=== PATIENT | female | born 1935 | race Caucasian/White ===

== ENCOUNTER 2018-09-03 13:29 | Day surgery (SDC) | payer MEDICARE, BC, OTHER ==
[~2018-09-03] VITALS: Ht 158.8 cm; Wt 54.5 kg
[~2018-09-03 13:29] MED LIST changes: -AMLO10TA5 PO; -ASPI81TA26 PO; -CALC500T44 PO; -CARV6.25 PO; -CO Q10CA PO; -COQ1100C5 PO; -GABA-843 PO; -GASTROGRAFIN SOLUTION 30ML (Q9963) As Ordered ONE; -GNP1000T11 PO; -ISOVUE-370 76% 100ML VIAL (Q9967) As Ordered ONE; -RAMI1CAP26 PO; -ROSU5TAB4 PO; -VITAD1000T PO
[2018-09-03] MEDS ORDERED: RAMI1CAP26 PO (13:40)
[2018-09-03] MEDS ORDERED: CARV6.25 PO (13:40)
[2018-09-03] MEDS ORDERED: ROSU5TAB5 PO (13:40)
[2018-09-03] MEDS ORDERED: VITAD1000T PO (13:40)
[2018-09-03] MEDS ORDERED: GABA-843 PO (13:40)
[2018-09-03] MEDS ORDERED: CO Q10CA PO (13:40)
[2018-09-03] MEDS ORDERED: NS 1,000 ML IV SCH (14:12)
[2018-09-03 14:28] LABS: BASO % 0.2 % (0.0-1.0); EOS % 0.2 % (0.0-3.0); HEMATOCRIT 39.2 % (36.0-47.0); LYMPH # 1.3 10^3/uL (1.5-4.5); LYMPH % 13.6 % (24.0-44.0); MEAN CORPUSCULAR HEMOGLOBIN 33.4 pg (27.0-33.0); MEAN CORPUSCULAR HGB CONC 33.2 g/dl (32.0-36.5); MEAN CORPUSCULAR VOLUME 100.8 fl (80.0-96.0); MONO # 0.8 10^3/uL (0.0-0.8); MONO % 8.2 % (0.0-5.0); NEUTROPHILS # 7.4 10^3/uL (1.8-7.7); NEUTROPHILS % 77.2 % (36.0-66.0); PLATELET COUNT, AUTOMATED 181 10^3/uL (150-450); RED BLOOD COUNT 3.89 10^6/uL (4.00-5.40); WHITE BLOOD COUNT 9.6 10^3/uL (4.0-10.0)
[2018-09-03] MEDS ORDERED: PIPERACILLIN/TAZOBACTAM SOD 4.5 GM in D5W MINI-BAG PLUS 50 ML IV ONE (14:30)
[2018-09-03 14:38] LABS: INR 1.15; PROTHROMBIN TIME 14.4 SECONDS (11.8-14.0)
[2018-09-03 14:39] LABS: PARTIAL THROMBOPLASTIN TIME 34.4 SECONDS (25.0-38.4)
[2018-09-03] MEDS ORDERED: MORPHINE 4 MG/ML 1ML VIAL/SYRINGE (J2270) IV ONE (15:00)
[2018-09-03 15:03] LABS: ALBUMIN 3.3 GM/DL (3.2-5.2); ALT/SGPT 22 U/L (12-78); BILIRUBIN,DIRECT 0.2 MG/DL (0.0-0.2); BILIRUBIN,TOTAL 0.6 MG/DL (0.2-1.0); BLOOD UREA NITROGEN 15 MG/DL (7-18); CALCIUM LEVEL 8.5 MG/DL (8.8-10.2); CARBON DIOXIDE LEVEL 28 MEQ/L (21-32); CHLORIDE LEVEL 102 MEQ/L (98-107); CREATININE FOR GFR 0.72 MG/DL (0.55-1.30); GLOMERULAR FILTRATION RATE > 60.0 (>32); GLUCOSE, FASTING 94 MG/DL (70-100); LIPASE 75 U/L (73-393); POTASSIUM SERUM 3.3 MEQ/L (3.5-5.1); SODIUM LEVEL 137 MEQ/L (136-145); TOTAL PROTEIN 6.5 GM/DL (6.4-8.2)
[2018-09-03] MEDS ORDERED: AMLO10TA5 PO (15:04)
[2018-09-03] MEDS ORDERED: ASPI81TA26 PO (15:04)
[2018-09-03] MEDS ORDERED: COQ1100C5 PO (15:04)
[2018-09-03] MEDS ORDERED: GNP1000T11 PO (15:05)
[2018-09-03] MEDS ORDERED: CALC500T44 PO (15:05)
[2018-09-03] MEDS ORDERED: BUPIVACAINE/EPIN 0.25% 30 ML VIAL As Ordered ONE (15:24)
[2018-09-03] MEDS ORDERED: KCL 40MEQ in NS 1000ML 1,000 ML IV SCH (16:00)
[2018-09-03] MEDS ORDERED: POTASSIUM CHLORIDE 10 MEQ SR TABLET PO ONE (16:00)
[2018-09-03] MEDS ORDERED: MORPHINE 4 MG/ML 1ML VIAL/SYRINGE (J2270) IV PRN ×2 (16:30→19:00)
--- NOTE | 2018-09-03 16:44 | CR.PDOC ---
General Date of Consultation: Sep 03, 2018 Consultation REASON FOR CONSULTATION/CHIEF COMPLAINT: Who presented to the emergency room with complaints of abdominal pain HISTORY OF PRESENT ILLNESS: Patient is an 82-year-old female with a PMHx of CAD s/p CABG (2008), HTN, DLP and Sciatica who presented to the ER with complaints of abdominal pain that has been going on for several days. Patient reports she began to experience lower abdominal pain around her umbilicus. Patient describes the pain as a distention/stretching-type feeling, associated with bloating and constipation. Patient reported an 8/10 pain on arrival. Patient reported some mild alleviation with Pepto-Bismol and carlie homero. She noted aggravation with movement. Patient does report some chills at home but denies any fever, episodes. Denies any associated nausea or vomiting. Denies any urinary discomfort. Patients last meal was this morning where she had toast. And patients last bowel movement was this morning. Patient denies any chest pain, shortness breath, palpitations. Patient follows with a account group supervisor in [place]. . She has received a stress test 2 years ago that has been reported negative and did not require any further cardiac catheterization. Patient does report that other than knee pain and back pain. Patient can ambulate up 2 flights of stairs without difficulty. ALLERGIES: Please see below. HOME MEDICATIONS: Please see below. PAST MEDICAL HISTORY: CAD s/p CABG (2008), HTN, DLP and Sciatica PAST SURGICAL HISTORY: Left total knee arthroplasty in September 2017 Coronary artery bypass grafting in 2008 FAMILY HISTORY: - Family history reviewed and noncontributory to current hospitalization SOCIAL HISTORY: - Denies the use of tobacco or illicit drugs; patient does report social alcohol use and drinks wine - Denies recent travel or sick contacts - Lives with , [facility] - Occupation; retired teacher REVIEW OF SYSTEMS: 10 point review of systems complete, all negative otherwise stated in HPI PHYSICAL EXAMINATION: - Vitals: BP 142/75, HR 85, RR 16, Sat 98%RA, Temp 98.2F - General: Lying in bed, No acute distress, Speaking in full sentences, AAOx3 - HEENT: NC, AT, PERRLA - CVS: RRR, +S1S2 - Lungs: Fair air entry bilaterally, No wheezing / rales / rhonchi - Abdomen: Soft, Non-distended, Tenderness noted around umbilicus and RLQ, rebound tenderness noted on bilateral lower quadrants, no rigidity - Extremities: No lower extremity edema, No calf tenderness - Neuro: No focal motor or sensory deficit - Skin: No visible rashes LABORATORY DATA: Please see below. ASSESSMENT/PLAN: Abdominal pain - likely 2/2 acute appendicitis - Presented to the ER with couplets of abdominal pain - Remains hemodynamically stable and afebrile - No leukocytosis - CT abdomen / pelvis 09/03: Findings compatible with acute appendicitis with suspected contained perforation as well as small amount of free fluid extending into the pelvis and surrounding inflammatory changes to the adjacent loops of small bowel. Findings were discussed with ordering clinician. - Will c/w IV fluid hydration and intra-abdominal coverage of infection with Zosyn (Day #1) - Will start Morphine for pain control - Will be managed by primary surgical team Medical optimization - Patient is medically optimized for her urgent surgical procedure CAD s/p CABG (2008) - Will hold ASA pending surgical input - c/w Rampiril / Carvedilol with hiolding parameters HTN - Will c/w Ramipril, Carvedilol, Amlodipine with holding parameters starting on 09/03 DLP - c/w Rosuvastatin Sciatica / Neuropathy - c/w Gabapentin Vitamin D deficiency - c/w Vitamin D supplementation DVT prophylaxis - Will start AALIYAH / Sequentials - Will hold Heparin / Lovenox based on surgical input Vital Signs/I&O Vital Signs Date Time Temp Pulse Resp B/P (MAP) Pulse Ox O2 Delivery O2 Flow Rate FiO2 09/03/18 14:56 18 09/03/18 14:25 09/03/18 13:30 98.2 85 98 Room Air Laboratory Data Labs 24H Laboratory Tests 2 09/03/18 14:15: Immature Granulocyte % (Auto) 0.6, White Blood Count 9.6, Red Blood Count 3.89L, Hemoglobin 13.0, Hematocrit 39.2, Mean Corpuscular Volume 100.8H, Mean Corpuscular Hemoglobin 33.4H, Mean Corpuscular Hemoglobin Concent 33.2, Red Cell Distribution Width 12.9, Platelet Count 181, Neutrophils (%) (Auto) 77.2H, Lymphocytes (%) (Auto) 13.6L, Monocytes (%) (Auto) 8.2H, Eosinophils (%) (Auto) 0.2, Basophils (%) (Auto) 0.2, Neutrophils # (Auto) 7.4, Lymphocytes # (Auto) 1.3L, Monocytes # (Auto) 0.8, Eosinophils # (Auto) 0.0, Basophils # (Auto) 0.0, Nucleated Red Blood Cells % (auto) 0.0, Prothrombin Time 14.4H, Prothromb Time International Ratio 1.15, Activated Partial Thromboplast Time 34.4, Anion Gap 7L, Glomerular Filtration Rate > 60.0, Calcium Level 8.5L, Aspartate Amino Transf (AST/SGOT) 17, Alanine Aminotransferase (ALT/SGPT) 22, Alkaline Phosphatase 67, Total Bilirubin 0.6, Direct Bilirubin 0.2, Total Protein 6.5, Albumin 3.3, Albumin/Globulin Ratio 1.03, Lipase 75 CBC/BMP Laboratory Tests 09/03/18 14:15 Red Blood Count 3.89 L, Mean Corpuscular Volume 100.8 H, Mean Corpuscular Hemoglobin 33.4 H, Mean Corpuscular Hemoglobin Concent 33.2, Red Cell Distribution Width 12.9, Neutrophils (%) (Auto) 77.2 H, Lymphocytes (%) (Auto) 13.6 L, Monocytes (%) (Auto) 8.2 H, Eosinophils (%) (Auto) 0.2, Basophils (%) (Auto) 0.2, Neutrophils # (Auto) 7.4, Lymphocytes # (Auto) 1.3 L, Monocytes # (Auto) 0.8, Eosinophils # (Auto) 0.0, Basophils # (Auto) 0.0 Allergies Coded Allergies: tramadol (Verified Adverse Reaction, Mild, n/v, 09/03/18) Home Medications Scheduled Amlodipine Besylate (Amlodipine Besylate) 10 Mg Tablet, 10 MG PO DAILY, (Reported) Aspirin (Aspirin EC) 81 Mg Tablet.dr, 81 MG PO 5XW, (Reported) MON, TUES, WED, FRI, SAT Calcium Carbonate/Vitamin D3 (Calcium 500-Vit D3 200 Tablet) 1 Each Tablet, 1 TAB PO DAILY, (Reported) Carvedilol (Carvedilol) 6.25 Mg Tablet, 6.25 MG PO BID, (Reported) Gabapentin (Gabapentin) 300 Mg Capsule, 600 MG PO TID, (Reported) Glucosamine Sulfate Dipot Chlr (Glucosamine) 1,000 Mg Tablet, 1,000 MG PO DAILY, (Reported) Ramipril (Ramipril) 10 Mg Capsule, 10 MG PO BID, (Reported) Rosuvastatin Calcium (Rosuvastatin Calcium) 5 Mg Tablet, 5 MG PO QHS, (Reported) Ubidecarenone (Co Q-10) 100 Mg Capsule, 100 MG PO DAILY, (Reported) Vitamin D (Vitamin D3) 1,000 Unit Tablet, 1,000 UNIT PO DAILY, (Reported) RADHA TOLBERT MD Sep 03, 2018 16:44
[2018-09-03] MEDS ORDERED: PILL CUTTER 1 EACH XX PRN (17:00)
[2018-09-03] MEDS ORDERED: fentaNYL 100 MCG/2 ML INJECTION (J3010) As Ordered ONE (17:34)
[2018-09-03] MEDS ORDERED: LIDOCAINE 2% INJ 100 MG/5 ML SDV (FOR ANES.) As Ordered ONE (17:34)
[2018-09-03] MEDS ORDERED: ROCURONIUM BROMIDE 50 MG/5 ML VIAL As Ordered ONE (17:34)
[2018-09-03] MEDS ORDERED: PROPOFOL 200 MG/20 ML VIAL As Ordered ONE (17:34)
[2018-09-03] MEDS ORDERED: dexameTHASONE 4 MG/ML 1ML VIAL (J1100) As Ordered ONE ×2 (17:34→19:02)
[2018-09-03] MEDS ORDERED: ONDANSETRON 4MG/2ML VIAL (J2405) As Ordered ONE ×2 (17:51→18:26)
--- NOTE | 2018-09-03 18:07 | HPE ---
DATE OF ADMISSION: 09/03/2018 CHIEF COMPLAINT: Abdominal pain. HISTORY OF PRESENT ILLNESS: Patient is an 82-year-old female who had an outpatient CT done for abdominal pain, which revealed a contained perforation of the appendix. Therefore, she was sent directly to the emergency room for evaluation. In the emergency room (ER), labs were done which were within normal range. Vitals were stable, but due to this perforated appendix, I was called to evaluate. She claims she has had pain for least 48 hours, maybe a little bit longer. She has had history of sciatica and originally attributed her symptoms to that; however, when the pains got worse, she had some slight nausea with it. She thought it might be something different and her primary send for a CAT scan. No fevers. No vomiting. No problems with bowel movements or urination. No recent trauma or travel. No recent changes in medications. No prior surgery to the abdomen. PAST MEDICAL HISTORY: 1. Coronary artery disease 2. Hyperlipidemia. 3. Sciatica. 3. Gastroesophageal reflux disease (GERD). PAST SURGICAL HISTORY: 1. Coronary artery bypass graft (CABG) 2008. 2. Knee surgery. FAMILY HISTORY: Noncontributory. SOCIAL HISTORY: Denies drug, alcohol or tobacco abuse. REVIEW OF SYSTEMS: Per positives listed in the history of present illness (HPI). PHYSICAL EXAMINATION: GENERAL: Alert and oriented times three. No acute distress. VITAL SIGNS: Temperature 98.2, pulse 91, respirations 18, blood pressure 150/72, pulse oximetry 92% room air. HEENT: Pupils equal, round, react to light and accommodation. HEART: S1, S2. Regular rate and rhythm. LUNGS: Clear to auscultation bilaterally. ABDOMEN: Soft, tender to palpation diffuse lower left and right quadrants. No guarding or rigidity. EXTREMITIES: No clubbing, cyanosis or edema. LABORATORY DATA: White count 9.61, hemoglobin 13, platelets 181. Potassium 3.3. IMAGING: CT abdomen and pelvis from today shows findings compatible with acute appendicitis with a suspected contained perforation, as well as a small amount of free fluid extending to the pelvis and surrounding inflammatory changes to the adjacent loops of small bowel. ASSESSMENT AND PLAN: Again, the patient is an 82-year-old female with acute appendicitis. RECOMMENDATIONS: Proceed with laparoscopic, possible open, appendectomy. Risks and benefits of the procedure, not limited to, but including bleeding, infection, hernia formation, damage to surrounding structure, the need for further surgery was discussed in detail with the patient. Informed was obtained. Procedure was planned. Postoperatively, if the appendix comes out without any complications, she will be able to be discharged straight home. If it is significantly inflamed or falls apart during excision, then I will keep her overnight for observation. All of her questions were answered and surgery is planned for this evening.
[2018-09-03] MEDS ORDERED: SUGAMMADEX SODIUM 500 MG/5 ML VIAL (BRIDION) As Ordered ONE (18:25)
[2018-09-03] MEDS ORDERED: KETOROLAC 60 MG/2 ML VIAL (J1885) As Ordered ONE (18:27)
[2018-09-03] MEDS ORDERED: MIDAZOLAM INJ 2 MG/2 ML VIAL (J2250) As Ordered ONE (18:52)
[2018-09-03] MEDS ORDERED: NORCO, ANEXSIA 5/325MG TABLET (HYDROcodone/ACETAMINOPHEN) PO PRN ×2 (19:00→19:30)
[2018-09-03] MEDS ORDERED: PIPERACILLIN/TAZOBACTAM SOD 3.375 GM in D5W MINI-BAG PLUS 50 ML IV SCH (19:00)
[2018-09-03] MEDS ORDERED: ONDANSETRON 4MG/2ML VIAL (J2405) IV PRN ×2 (19:00→19:30)
[2018-09-03] MEDS ORDERED: ACETAMINOPHEN TAB 650MG DOSE (2X325MG) PO PRN (19:00)
[2018-09-03] MEDS ORDERED: KETOROLAC 30 MG/ML VIAL (J1885) IV PRN (19:00)
[2018-09-03] MEDS ORDERED: MORPHINE 10 MG/ML 1ML VIAL (J2270) IV PRN (19:30)
[2018-09-03] MEDS ORDERED: LR 1,000 ML IV SCH (19:30)
[2018-09-03] MEDS ORDERED: fentaNYL 100 MCG/2 ML INJECTION (J3010) IV PRN (19:30)
[2018-09-03 20:20] VITALS: BP 123/67
[2018-09-03 20:50] VITALS: BP 110/59
[2018-09-03] MEDS ORDERED: ROSUVASTATIN 10 MG TAB (CRESTOR) PO SCH (21:00)
[2018-09-03] MEDS: RAMIPRIL 5 MG CAP PO SCH (21:00)
[2018-09-03] MEDS: PIPERACILLIN/TAZOBACTAM SOD 3.375 GM in D5W MINI-BAG PLUS 50 ML IV SCH (21:18)
[2018-09-03 21:20] VITALS: BP 120/67
--- NOTE | 2018-09-03 21:46 | ECGEPIP ---
[facility] - ED Test Date: 2018-09-03 Pat Name: SOCORRO ARNETT Department: Room: - Gender: Female Marketing Communications Coordinator: CHACHO : 1935 Requested By: SHANNON Vasquez Order Number: [id number] Reading MD: Angie Sanchez Measurements Intervals [place] Rate: 84 P: 66 IN: 174 QRS: QRSD: 108 T: 22 QT: 353 QTc: 418 Interpretive Statements SINUS RHYTHM POSSIBLE LEFT ATRIAL ENLARGEMENT BORDERLINE LEFT AXIS DEVIATION INCOMPLETE RIGHT BUNDLE BRANCH BLOCK NSTTW abnormalities NO PRIOR Electronically Signed on 09-03-2018 21:46:03 EDT by Angie Sanchez
[2018-09-03 22:20] VITALS: BP 112/61
[2018-09-03] MEDS: GABAPENTIN 300 MG CAP PO SCH (22:25)
[2018-09-03] MEDS: KCL 40MEQ in NS 1000ML 1,000 ML IV SCH (22:25)
[2018-09-03] MEDS: SENOKOT S TAB PO SCH (22:27)
[2018-09-03] MEDS: CARVedilol 6.25 MG TAB PO SCH (22:27)
[2018-09-03 23:20] VITALS: BP 119/67
[2018-09-04 00:20] VITALS: BP 114/64
[2018-09-04 01:20] VITALS: BP 104/58
[2018-09-04] MEDS: PIPERACILLIN/TAZOBACTAM SOD 3.375 GM in D5W MINI-BAG PLUS 50 ML IV SCH ×2 (03:07→08:31)
[2018-09-04 04:38] VITALS: BP 99/57
[2018-09-04 04:41] VITALS: BP 91/55
[2018-09-04] MEDS: KCL 40MEQ in NS 1000ML 1,000 ML IV SCH ×2 (06:35→10:20)
[2018-09-04 07:25] LABS: HEMATOCRIT 39.1 % (36.0-47.0); HEMOGLOBIN 12.9 g/dl (12.0-15.5); MEAN CORPUSCULAR HEMOGLOBIN 33.4 pg (27.0-33.0); MEAN CORPUSCULAR VOLUME 101.3 fl (80.0-96.0); PLATELET COUNT, AUTOMATED 183 10^3/uL (150-450); RED BLOOD COUNT 3.86 10^6/uL (4.00-5.40); WHITE BLOOD COUNT 7.6 10^3/uL (4.0-10.0)
[2018-09-04 08:00] VITALS: BP 142/68
[2018-09-04 08:06] LABS: BLOOD UREA NITROGEN 12 MG/DL (7-18); CALCIUM LEVEL 7.7 MG/DL (8.8-10.2); CARBON DIOXIDE LEVEL 26 MEQ/L (21-32); CHLORIDE LEVEL 105 MEQ/L (98-107); CREATININE FOR GFR 0.93 MG/DL (0.55-1.30); GLOMERULAR FILTRATION RATE > 60.0 (>32); GLUCOSE, FASTING 167 MG/DL (70-100); POTASSIUM SERUM 4.4 MEQ/L (3.5-5.1); SODIUM LEVEL 137 MEQ/L (136-145)
--- NOTE | 2018-09-04 08:09 | RO ---
DATE OF PROCEDURE: 09/03/2018 PREOPERATIVE DIAGNOSIS: Acute appendicitis. POSTOPERATIVE DIAGNOSIS: Acute appendicitis. PROCEDURE: Laparoscopic appendectomy. SURGEON: Dr. Orta ARMATURE WINDER REPAIRER: None. ANESTHESIA: General. ESTIMATED BLOOD LOSS (EBL): 5. COMPLICATIONS: None. INDICATIONS FOR PROCEDURE: The patient is an 82-year-old female, presents with a 48 hour plus history of increasing lower abdominal pains, found to have a contained perforated appendix on CT. Recommendation was to proceed with laparoscopic appendectomy. Risks and benefits of the procedure not limited but including bleeding, infection, hernia formation, damage to surrounding structure, need for further surgery were discussed in detail with the patient. Informed consent was obtained and procedure was planned. DESCRIPTION OF PROCEDURE: Patient brought back to operating room #8. After sufficient sedation the abdomen sterilely prepped and draped. Next, a time-out was done to confirm proper patient and proper procedure. Following that a 5 mm incision made in the left lower quadrant, Veress needle was inserted and the abdomen was insufflated to 50 mmHg. Next, the Veress needle was removed and a 5 mm Optiview port was used to gain access to the abdomen. Once the abdomen was entered, an 8 mm port was placed infraumbilically in the midline and another 5 mm port suprapubically in the midline. The patient was placed in Trendelenburg position. The right lower quadrant was examined. There were two loops of terminal ileum that were overlying the appendix tip and densely adhered to it. These were carefully removed using blunt dissection. After doing so, the tip of the appendix was necrotic. I was able to elevate the appendix up in the air, dissect through the mesoappendix using the Enseal and then ligated the base the appendix with two PDS Endoloop. The appendix was then amputated using the Enseal, brought out through the umbilical port site in a 5 mm EndoCatch bag. The abdomen was then examined for any bleeding. All of the fluid that was in there from the ascites and inflammation was aspirated. The abdomen was then desufflated. Skin incisions were closed #4-0 Vicryl subcuticular sutures. #0 Vicryl fascial stitch was placed at the umbilical port site because it had to be widened a little bit for the removal of the appendix specimen. Once the #0 Vicryl stitch was placed, the skin at that site was also closed with #4-0 Vicryl interrupted sutures. The abdomen was then cleaned and dried, 4 x 4's, Steri-Strips, and tape were applied thus ending procedure.
[2018-09-04 08:31] VITALS: BP 124/68
[2018-09-04] MEDS: RAMIPRIL 5 MG CAP PO SCH (08:31)
[2018-09-04] MEDS: GABAPENTIN 300 MG CAP PO SCH (08:31)
[2018-09-04] MEDS: SENOKOT S TAB PO SCH (08:32)
[2018-09-04] MEDS: CARVedilol 6.25 MG TAB PO SCH (08:32)
[2018-09-04] MEDS ORDERED: amLODIPine 10 MG TAB PO SCH (09:00)
[2018-09-04] MEDS ORDERED: VITAMIN D 1,000 INTERNATIONAL UNITS TABLET PO SCH (09:00)
--- NOTE | 2018-09-04 12:45 | DSES ---
DATE OF ADMISSION: 09/03/2018 DATE OF DISCHARGE: 09/04/2018 ADMISSION DIAGNOSIS: Acute appendicitis. DISCHARGE DIAGNOSIS: Acute appendicitis. HOSPITAL COURSE: The patient 82-year female who had abdominal pain, underwent an outpatient CT and this revealed a contained perforated appendix. She was then sent to the ER. After I evaluated her and reviewed her images, recommended surgery. She was brought to the operating room for urgent lap appendectomy. Postoperatively she did well. She was admitted to the floor placed on regular diet. She is currently tolerating diet. No nausea or vomiting. She is ambulating around and urinating without any difficulty. Labs were completely normal. Vitals are stable, afebrile. Plan is discharge her home today. She does not require any pain meds or antibiotics for discharge. She will continue with her current home medications. She will follow-up with me in the office in two weeks. No lifting more than 20 pounds for two weeks. No baths for five days. She had shower this evening. All of her questions were answered and she will follow-up with me in the office.
--- NOTE | 2018-09-04 13:18 | IPNPDOC ---
Subjective Date Seen The patient was seen on 09/04/18. Subjective Chief Complaint/HPI Patient seen and examined at bedside. No acute overnight events noted. She states that she has been tolerating a diet without any acute complaints following surgery. Notes that she is passing flatus, and denies any abdominal pain at this time. Objective Physical Examination General Exam: Positive: Alert, Cooperative, No Acute Distress ENT Exam: Positive: Atraumatic, Mucous membr. moist/pink Neck Exam: Negative: JVD Chest Exam: Positive: Clear to auscultation, Normal air movement Heart Exam: Positive: Rate Normal, Normal S1, Normal S2 Abdomen Exam: Positive: Soft; Negative: Tenderness Extremity Exam: Negative: Tenderness, Swelling Psych Exam: Positive: Oriented x 3 Assessment /Plan Plan/VTE VTE Prophylaxis Ordered?: Yes Plan Abdominal pain 2/[address] abdomen / pelvis 09/03: Findings compatible with acute appendicitis with suspected contained perforation as well as small amount of free fluid extending into the pelvis and surrounding inflammatory changes to the adjacent loops of small bowel. Findings were discussed with ordering clinician. s/p laparoscopic appendectomy on 09/03/18 CAD s/p CABG (2008) Continue current meds HTN Ramipril, Carvedilol, Amlodipine DLP Rosuvastatin Sciatica / Neuropathy Gabapentin Vitamin D deficiency Vitamin D supplementation VS, I&O, 24H, Fishbone Vital Signs/I&O Vital Signs Date Time Temp Pulse Resp B/P (MAP) Pulse Ox O2 Delivery O2 Flow Rate FiO2 09/04/18 08:31 124/68 09/04/18 08:00 97.9 80 19 95 09/04/18 04:41 2.0 09/03/18 16:30 Room Air I&O- Last 24 Hours up to 6 AM 09/04/18 06:00 Intake Total 2900 ml Output Total 450 ml Balance 2450 ml Laboratory Data 24H LABS Laboratory Tests 2 09/03/18 14:15: Immature Granulocyte % (Auto) 0.6, White Blood Count 9.6, Red Blood Count 3.89L, Hemoglobin 13.0, Hematocrit 39.2, Mean Corpuscular Volume 100.8H, Mean Corpuscular Hemoglobin 33.4H, Mean Corpuscular Hemoglobin Concent 33.2, Red Cell Distribution Width 12.9, Platelet Count 181, Neutrophils (%) (Auto) 77.2H, Lymphocytes (%) (Auto) 13.6L, Monocytes (%) (Auto) 8.2H, Eosinophils (%) (Auto) 0.2, Basophils (%) (Auto) 0.2, Neutrophils # (Auto) 7.4, Lymphocytes # (Auto) 1.3L, Monocytes # (Auto) 0.8, Eosinophils # (Auto) 0.0, Basophils # (Auto) 0.0, Nucleated Red Blood Cells % (auto) 0.0, Prothrombin Time 14.4H, Prothromb Time International Ratio 1.15, Activated Partial Thromboplast Time 34.4, Anion Gap 7L, Glomerular Filtration Rate > 60.0, Calcium Level 8.5L, Aspartate Amino Transf (AST/SGOT) 17, Alanine Aminotransferase (ALT/SGPT) 22, Alkaline Phosphatase 67, Total Bilirubin 0.6, Direct Bilirubin 0.2, Total Protein 6.5, Albumin 3.3, Albumin/Globulin Ratio 1.03, Lipase 75 09/04/18 06:53: Nucleated Red Blood Cells % (auto) 0.0, Anion Gap 6L, Glomerular Filtration Rate > 60.0, Calcium Level 7.7L, Blood Urea Nitrogen 12, Creatinine 0.93, Sodium Level 137, Potassium Level 4.4#, Chloride Level 105, Carbon Dioxide Level 26, Magnesium Level 2.0 CBC/BMP Laboratory Tests 09/03/18 14:15 Red Blood Count 3.89 L, Mean Corpuscular Volume 100.8 H, Mean Corpuscular Hemoglobin 33.4 H, Mean Corpuscular Hemoglobin Concent 33.2, Red Cell Distribution Width 12.9, Neutrophils (%) (Auto) 77.2 H, Lymphocytes (%) (Auto) 13.6 L, Monocytes (%) (Auto) 8.2 H, Eosinophils (%) (Auto) 0.2, Basophils (%) (Auto) 0.2, Neutrophils # (Auto) 7.4, Lymphocytes # (Auto) 1.3 L, Monocytes # (Auto) 0.8, Eosinophils # (Auto) 0.0, Basophils # (Auto) 0.0 09/04/18 06:53 Red Blood Count 3.86 L, Mean Corpuscular Volume 101.3 H, Mean Corpuscular Hemoglobin 33.4 H, Mean Corpuscular Hemoglobin Concent 33.0, Red Cell Distribution Width 13.0, Calcium Level 7.7 L LUIS CARLOS PARR MD Sep 04, 2018 13:18
== END 2018-09-04 11:25 | disposition home or self-care (01) ==
LOC: M ED 13:29 → M SDC 16:40 → M PED 20:05 → M SDC 09-04 11:25
PROVIDERS: ATTEND Surgery
DX: K35.890 Other acute appendicitis without perforation or gangrene (principal); I10 Essential (primary) hypertension; E78.49 Other hyperlipidemia; Z95.1 Presence of aortocoronary bypass graft; I25.10 Atherosclerotic heart disease of native coronary artery without angina pectoris; M54.30 Sciatica, unspecified side; K21.9 Gastro-esophageal reflux disease without esophagitis; Z88.8 Allergy status to other drugs, medicaments and biological substances; Z79.899 Other long term (current) drug therapy; Z79.82 Long term (current) use of aspirin; R79.1 Abnormal coagulation profile
CPT/HCPCS: 36415; 44970; 74177; 80053; 83690; 83735; 84145; 85025; 85027; 85610; 85730; 87086; 88302; 93005; 93041; 96361; 96365; 96366; 96375; 96376; 99285; J1100; J1885; J2270; J2405; J2543; J3010; Q9963; Q9967

== ENCOUNTER → 2018-09-03 | Outpatient (REF) | payer MEDICARE, OTHER ==
[~2018-09-03] MED LIST: ALTA1.25; ALTA5CAP; AMLO10TA5 PO; ASPI81TA26 PO; ASPI81TA63; CALC500T44 PO; CALCCHW12; CARV6.25 PO; CO Q10CA PO; COQ1100C5 PO; GABA-843 PO; GLUC500T3; GNP1000T11 PO; Glucosamine; METO-1; NORV5TAB PO; PRAV10TA2; PRAV40TA; RAMI1CAP26 PO; ROSU5TAB4 PO; VITAD1000T PO
== END ==
LOC: M LAB REF 12:32
PROVIDERS: ATTEND Physician Assistant
DX: R10.30 Lower abdominal pain, unspecified (principal)

== ENCOUNTER → 2018-09-03 | Outpatient (CLI) | payer MEDICARE, BC, OTHER ==
[~2018-09-03] MED LIST changes: +GASTROGRAFIN SOLUTION 30ML (Q9963) As Ordered ONE; +ISOVUE-370 76% 100ML VIAL (Q9967) As Ordered ONE
[2018-09-03 11:04] LABS: BASO % 0.3 % (0.0-1.0); EOS % 0.1 % (0.0-3.0); HEMATOCRIT 39.6 % (36.0-47.0); HEMOGLOBIN 13.1 g/dl (12.0-15.5); LYMPH # 1.7 10^3/uL (1.5-4.5); LYMPH % 15.5 % (24.0-44.0); MEAN CORPUSCULAR HEMOGLOBIN 32.7 pg (27.0-33.0); MEAN CORPUSCULAR HGB CONC 33.1 g/dl (32.0-36.5); MEAN CORPUSCULAR VOLUME 98.8 fl (80.0-96.0); MONO # 0.8 10^3/uL (0.0-0.8); MONO % 7.3 % (0.0-5.0); NEUTROPHILS # 8.4 10^3/uL (1.8-7.7); NEUTROPHILS % 76.2 % (36.0-66.0); PLATELET COUNT, AUTOMATED 197 10^3/uL (150-450); RED BLOOD COUNT 4.01 10^6/uL (4.00-5.40); WHITE BLOOD COUNT 11.1 10^3/uL (4.0-10.0)
[2018-09-03 11:29] LABS: ALBUMIN 3.4 GM/DL (3.2-5.2); ALT/SGPT 22 U/L (12-78); BILIRUBIN,TOTAL 0.8 MG/DL (0.2-1.0); BLOOD UREA NITROGEN 16 MG/DL (7-18); CALCIUM LEVEL 8.7 MG/DL (8.8-10.2); CARBON DIOXIDE LEVEL 30 MEQ/L (21-32); CHLORIDE LEVEL 101 MEQ/L (98-107); CREATININE FOR GFR 0.86 MG/DL (0.55-1.30); GLOMERULAR FILTRATION RATE > 60.0 (>32); GLUCOSE, FASTING 92 MG/DL (70-100); POTASSIUM SERUM 3.6 MEQ/L (3.5-5.1); SODIUM LEVEL 136 MEQ/L (136-145); TOTAL PROTEIN 6.6 GM/DL (6.4-8.2)
--- NOTE | 2018-09-03 13:17 | REP ---
Clinical: Lower abdominal pain. Technique: Axial contrast enhanced images from the lung bases to the pubic symphysis using oral (per protocol) and 100 ml Isovue 370 intravenous contrast material with coronal and sagittal re-formations. Comparison: None. Findings: The appendix is significantly inflamed with moderate to significant surrounding periappendiceal inflammatory stranding and small focus of suspected extraluminal gas adjacent to the distal appendix. Small amount of free fluid extends into the pelvis. No discrete drainable collection or abscess. Findings are compatible with acute appendicitis with suspected contained perforation. Inflammatory changes within the adjacent mesentery cause secondary infectious/inflammatory changes to the surrounding small bowel including the adjacent terminal ileum. The cecum is normal. Remainder of small large bowel is grossly unremarkable. Liver, spleen, pancreas, gallbladder, bilateral adrenal glands and kidneys appear normal. Pelvis demonstrates relatively normal bladder and age-appropriate uterus/adnexa. Musculoskeletal structures demonstrate age-related degenerative changes. Impression: Findings compatible with acute appendicitis with suspected contained perforation as well as small amount of free fluid extending into the pelvis and surrounding inflammatory changes to the adjacent loops of small bowel. Findings were discussed with ordering clinician. Electronically Signed by Ace Alegria MD 09/03/2018 01:09 P
== END ==
LOC: M LAB 10:32
PROVIDERS: ATTEND Physician Assistant
DX: R10.30 Lower abdominal pain, unspecified (principal)
CPT/HCPCS: 36415; 74177; 80053; 85025; Q9963; Q9967